=== PATIENT | male | born 1990 | race Hispanic/Latino ===

== ENCOUNTER 2023-09-07 16:33 | Outpatient (CLI) | payer BC ==
[2023-09-07 17:13] LABS: #Eosinphils 0.2 10x3/uL (0.0-0.5); #Monocytes 0.6 10x3/uL (0.0-1.1); #Neutrophils 5.3 10x3/uL (1.5-8.4); %Basophils 0.5 % (0.0-2.0); %Eosinophils 2.6 % (0.0-6.0); %Lymphocytes 27.7 % (18.0-47.0); %Monocytes 7.3 % (0.0-10.0); %Neutrophils 61.7 % (40.0-75.0); Hematocrit 45.2 % (38.8-50.0); Hemoglobin 15.3 g/dL (13.5-17.5); Mean Corpuscular HGB CONC 33.8 g/dL (32.0-36.0); Mean Corpuscular Hemoglobin 28.6 pg (27.0-33.0); Mean Corpuscular Volume 84.5 fl (81.2-95.1); Mean Platelet Volume 11.1 fl (7.4-10.4); Platelet Count 240 10x3/uL (150-450); RBC Distribution Width 12.5 % (11.5-14.5); Red Blood Cell (RBC) Count 5.35 10x6/uL (4.32-5.72); White Blood Cell (WBC) Count 8.6 10x3/uL (3.5-10.5)
[2023-09-07 17:35] LABS: Anion Gap 16 mmol/L (10-20); BUN (Urea Nitrogen) 23 mg/dL (8.9-20.6); Calc. Creatinine Clearance 0 mL/min (70-130); Calcium 9.5 mg/dL (7.8-10.44); Carbon Dioxide 20 mmol/L (22-29); Chloride 106 mmol/L (98-107); Estimated GFR 118; Glucose 98 mg/dL (70-105); Potassium 4.1 mmol/L (3.5-5.1); Sodium 138 mmol/L (136-145)
== END 2023-09-07 16:34 | disposition home or self-care (01) ==
LOC: LABBT 16:33
PROVIDERS: ATTEND Surgery
DX: Z01.812 Encounter for preprocedural laboratory examination (principal); M79.89 Other specified soft tissue disorders
CPT/HCPCS: 80048; 85025

== ENCOUNTER 2023-09-12 12:06 | Day surgery (SDC) | payer BC ==
[2023-09-07 16:52] VITALS: BMI 36.2
[2023-09-12] MEDS ORDERED: fentaNYL 50 mcg/mL 1 mL Vial ONE (15:06)
[2023-09-12] MEDS ORDERED: Midazolam HCl 2 mg/2 ml Vial ONE (15:06)
[2023-09-12] MEDS ORDERED: SUGAMMADEX SODIUM 200 MG/2 ML VIAL ONE (15:06)
[2023-09-12] MEDS ORDERED: EPINEPHrine 1 MG/ML AMP ONE (15:18)
[2023-09-12] MEDS ORDERED: Bupivacaine PF 0.5% 30 ML VIAL ONE (15:18)
[2023-09-12] MEDS ORDERED: LevoFLOXacin 500 mg/D5W 100 ML BAG ONE (15:25)
[2023-09-12] MEDS ORDERED: PROPOFOL 200 MG/20 ML VIAL ONE (15:38)
[2023-09-12] MEDS ORDERED: Lidocaine 1% PF 5 ML VIAL ONE (15:38)
[2023-09-12] MEDS ORDERED: Ondansetron PF 4 MG/2 ML Vial ONE (15:38)
== END 2023-09-12 20:10 | disposition home or self-care (01) ==
LOC: SDC 12:06
PROVIDERS: ATTEND Surgery
PROC: 0JB70ZZ Excision of Back Subcutaneous Tissue and Fascia, Open Approach (ICD-10-PCS; principal; 2023-09-12)
PROC: 0JB80ZZ Excision of Abdomen Subcutaneous Tissue and Fascia, Open Approach (ICD-10-PCS; principal; 2023-09-12)
PROC: 0JBL0ZZ Excision of Right Upper Leg Subcutaneous Tissue and Fascia, Open Approach (ICD-10-PCS; principal; 2023-09-12)
DX: D17.24 Benign lipomatous neoplasm of skin and subcutaneous tissue of left leg (principal); D17.1 Benign lipomatous neoplasm of skin and subcutaneous tissue of trunk; D17.23 Benign lipomatous neoplasm of skin and subcutaneous tissue of right leg; M79.89 Other specified soft tissue disorders
CPT/HCPCS: 88305; J0171; J1956; J2250; J2405; J2704; J3010; S0020